=== PATIENT | male | born 1985 | race African-American/Black ===

== ENCOUNTER 2020-06-05 12:37 | Outpatient (CLI) | payer OTHER ==
[2020-06-05 13:34] VITALS: BP 132/96
--- NOTE | 2020-06-05 13:34 | SLEEP CARE CONSULTATION ---
Information from patient questionnaire entered by Hellen Alicea. I have reviewed and concur with the information entered by Hellen Alicea. This document represents the service I personally performed and the decisions made by me, Maryam Anderson ARNP. History of Present Illness Service Date and Time: 06/05/2020 1237 Reason for Visit: New patient Chief Complaint: reports: Unrefreshed sleep, Snoring, Excessive daytime sleepiness, Frequent awakenings at night. denies: Observed pauses in breathing Date of Onset: 1 year Usual bedtime: 11:30 PM Time it takes to fall asleep: 15 mins Snores at night: Yes Observed to quit breathing while asleep: No Sleeps alone due to snoring: No Number of times waking at night: 4-5 times Reasons for waking at night: reports: Snoring, Other (Sweating). denies: Choking, Gasping for air Toss, Turn, or Twitch while sleeping: Yes Recalls having dreams: Yes Usually gets out of bed at: 5:30 AM Feels refreshed in the morning: No Morning headache: No Sleepy or fatigued during the day: Yes Ever fallen asleep while driving: No Takes day naps: Yes (daily on weekdays, lasts about 3 hours) Dreams during day naps: No Prior sleep studies: No Additional HPI information: I had the pleasure of seeing ESTELA MCKENZIE today regarding the possibility of him having a sleep disorder. His current complaints are snoring, he feels he is not getting a "constant night sleep", he is waking up frequently at night , sometimes he is not sleeping at all and he has had some drenching night sweats that he gets occasionally. His tells him he snores loudly but she can still sleep in same room. His 3 year old son has also told him he snores. His has not noted any pauses in breathing while sleeping. He has no past medical history or medications. He has no family members with sleep disorders. 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 Patient is and lives in [place]. Have you smoked in the past 12 months: No Alcohol use: Yes Alcohol amount and frequency: 1/2 bottle of wine 4 days a week Caffeine use: No Family History Family history of sleep disordered breathing: No Allergies and Home Medications Drug allergies reviewed: Yes (NKDA) Home medication list reviewed: Yes (no medications) Review of Systems Weight gain over past 5 years: 40 Weight loss over past 5 years: 0 Cardiovascular: denies: high blood pressure Respiratory: denies: shortness of breath Gastrointestinal: denies: heartburn Neurological: denies: headaches, head trauma Ear/Nose/Throat: reports: wisdom teeth removed (still has one). denies: nasal congestion, sinus problems, dry mouth/throat, injury to nose, tonsillectomy Endocrine: reports: too hot or cold, excessive thirst, increased appetite Musculoskeletal: reports: joint pain (stiffness) Immunologic: denies: allergies to food or environment Physical Exam Blood Pressure: 132/96 Cuff size: wrist Heart Rate: 77 O2 Saturation: 98 Height: 5 ft 8 in Weight: 234 lb Body Mass Index: 35.6 BMI Classification: Obese Neck circumference: 18 (inches) Nostrils: patent to airflow Mouth and throat: narrow oropharynx Hard palate: Torus palatinus Uvula: normal Uvula visualization: 50% Mallampati Class II Tongue: normal in size Tonsils: 2+ Chin and jaw: normal size and position Neck: normal w/o lymphadenopathy or thyromegaly Heart: regular rate and rhythm Lungs: clear bilaterally Impression and Plan 1. Suspected Obstructive Sleep Apnea-Hypopnea Syndrome, as suggested by a history of loud and irregular snoring, frequent awakening during the night, unrefreshed sleep, cognitive impairment, and excessive daytime sleepiness. Narrow oropharynx and obesity are common predisposing factors for obstructive sleep apnea-hypopnea syndrome. I recommend proceeding to polysomnography to confirm the diagnosis and to assess severity. If the patient has significant sleep disordered breathing, a manual CPAP titration study will also be performed to find the optimal treatment pressure. I informed the patient of what the sleep studies involve and after some discussion, obtained agreement to proceed. The pathophysiology of obstructive sleep apnea-hypopnea syndrome was discussed with the patient and health risks of cardiovascular and cerebrovascular disease if not treated. Risks of drowsy driving discussed in detail and patient advised to avoid long distance driving and to toe puller at the first sign of drowsiness. Patient agreed to plan. * Schedule polysomnography +- manual CPAP titration study and return in 1-2 weeks after the study to discuss result and initiate therapy. * Avoid long distance driving or driving when feeling sleepy. * Avoid alcohol, sedative and muscle relaxant around bedtime. * Attempt to lose weight. * Review instructions provided by trained office staff on how to prepare for the sleep study. * Return for follow-up after sleep study completed. Counseling Topics: Weight loss health impact Visit Type: In Office Time Spent with Patient (minutes): 30 Provider Statement: I spent 100% of the Face to Face Visit with the patient with greater than 50% spent counseling the patient and coordination of care.
== END 2020-06-05 12:38 | disposition home or self-care (01) ==
LOC: SC 12:37
PROVIDERS: ATTEND Nurse Practitioner Family
DX: R06.83 Snoring (principal); G47.8 Other sleep disorders; R41.89 Other symptoms and signs involving cognitive functions and awareness; G47.10 Hypersomnia, unspecified; E66.9 Obesity, unspecified; Z68.35 Body mass index [BMI] 35.0-35.9, adult
CPT/HCPCS: 99203; 99212

== ENCOUNTER 2020-06-28 12:52 | Outpatient (CLI) | payer OTHER | END 2020-06-28 12:53 | disposition home or self-care (01) | LOC: SC 12:52 | PROVIDERS: ATTEND Nurse Practitioner Family | DX: R06.83 Snoring (principal); G47.8 Other sleep disorders; G47.10 Hypersomnia, unspecified; E66.9 Obesity, unspecified; Z68.35 Body mass index [BMI] 35.0-35.9, adult | CPT/HCPCS: 95806 ==

== ENCOUNTER 2020-07-03 08:59 | Outpatient (CLI) | payer OTHER ==
--- NOTE | 2020-07-03 09:39 | SLEEP CARE CONSULTATION ---
Information from patient questionnaire entered by Lea Sotelo. I have reviewed and concur with the information entered by Lea Sotelo. This document represents the service I personally performed and the decisions made by , Maryam Anderson ARNP. History of Present Illness Service Date and Time: 07/03/2020 0859 Initial [place] Sleepiness Scale score: 15 (in 2020) Current [place] Sleepiness Scale score: 17 Additional HPI information: ESTELA MCKENZIE returns for follow up and results of the recently performed home sleep study. The patient was informed of the following findings: no significant sleep disordered breathing with an average AHI of 4.4 and farhana oxygen saturation of 87%. I explained the pathophysiology behind obstructive sleep apnea. Patient does not have sleep apnea and was advised how weight gain could increase the risk of developing sleep apnea in the future. I strongly encouraged the patient to lose weight. Patient does not have significant sleep disordered breathing but has elevated AHI in supine position so advised positional therapy. Methods to achieve positional management therapy were discussed; such as, positioning with pillows, wearing a T-shirt with tennis balls sewn into the back, Rematee shirt, Zzomba belt and Slumberbump belt. Pamphlets provided on how to obtain the commercially available products. Patient has mild snoring. Snoring can be reduced by weight loss. Weight loss is best achieved with diet consult. Patient instructed to contact PCP for referral. Snoring can also be treated with an oral appliance from a dentist. Advised to check insurance coverage. In addition, an ENT evaluation can be do to see if other treatment is indicated. Patient counseled not drink alcohol less than 4 hours before bedtime as it can increase snoring and apnea. Patient was cautioned about risks of drowsy driving until sleepiness symptoms resolve. Sleep Study - Results Type of Sleep Study: Home sleep study Prior sleep studies: No Polysomnography/Home Sleep Study results: Physician Impression: The quality of the study is good. The length of the study is adequate (> 240 minutes). Please also see the tabulated and graphic data. 1. No significant sleep-disordered breathing, with an AHI of 4.4/hr and farhana SaO2 of 87%. During the study, the patient had 10 apneas (10 obstructive, 0 central, 0 mixed) and 22 hypopneas. The longest episode lasted 57.0 seconds. The few respiratory events occurred almost exclusively during supine sleep (supine AHI was 7.0 and non-supine, 2.84). 2. Hypoxemia (ICD-10 R09.02), minimal, with the lowest oxygen saturation of 87 % and 0.3 minutes with SaO2 under 90%. Baseline oxygen saturation was normal (Average oxygen saturation was 95%). Allergies and Home Medications Home medication list reviewed: Yes (no changes) Review of Systems Review of systems same as previous: Yes (no changes) Physical Exam Heart Rate: 71 O2 Saturation: 98 Height: 5 ft 8 in Weight: 230 lb Body Mass Index: 34.9 BMI Classification: Obese Impression and Plan Snoring but no significant sleep disordered breathing. Patient advised that often weight loss will reduce snoring as well as apnea risk. An oral appliance can also be used for snoring. This would require a dental consultation. Patient cautioned not to use other online appliances as can cause bite issues. A list of accredited dentists in [facility] and one local dentist who makes oral appliances is available in this office. Patient is advised to check if insurance will cover. An ENT consult can also be helpful to determine if any other treatment is an option. * Attempt to lose weight * Avoid alcohol consumption near bedtime * The patient is cautioned about driving until sleepiness is completely resolved. * Return as needed. Counseling Topics: Weight loss health impact Visit Type: In Office Time Spent with Patient (minutes): 15 Provider Statement: I spent 100% of the Face to Face Visit with the patient with greater than 50% spent counseling the patient and coordination of care.
== END 2020-07-03 09:00 | disposition home or self-care (01) ==
LOC: SC 08:59
PROVIDERS: ATTEND Nurse Practitioner Family
DX: R06.83 Snoring (principal); E66.9 Obesity, unspecified; Z68.34 Body mass index [BMI] 34.0-34.9, adult
CPT/HCPCS: 99212

== ENCOUNTER 2021-03-28 13:19 | Outpatient (CLI) | payer OTHER ==
[2021-03-28 13:51] VITALS: BP 142/103
--- NOTE | 2021-03-28 13:51 | SLEEP CARE CONSULTATION ---
Information from patient questionnaire entered by Gonzalo Shields MA. I have reviewed and concur with the information entered by Gonzalo Shields MA. This document represents the service I personally performed and the decisions made by , Maryam Anderson ARNP. History of Present Illness Service Date and Time: 03/28/2021 1319 Reason for follow up: other (9 MONTH F/U) Prior sleep studies: No Type of Sleep Study: Home sleep study HPI additional information: ESTELA MCKENZIE was last seen following a sleep study showing AHI 4.4 with a supine AHI of 7.0. He returns today for a seven month follow-up. He states he is still having issues with sleeping. He snores loudly, wakes up feeling like he is choking/suffocating and he does not feel rested in the mornings. He has excessive daytime sleepiness and will fall asleep if he sits quietly, he has to stay moving to stay awake. Sleep Study - Results Type of Sleep Study: Home sleep study Prior sleep studies: No Subjective Initial [place] Sleepiness Scale score: 15 (in 2020) Current [place] Sleepiness Scale score: 17 (2020) Allergies and Home Medications Home medication list reviewed: Yes Allergy and home medication list: Sumatriptan Synthroid Blood pressure medication, not sure of name Physical Exam Vital signs obtained and entered by: SRI BORJAS Blood Pressure: 142/103 (RIGHT ) Cuff size: wrist Heart Rate: 100 (TAKING BP MEDS) O2 Saturation: 96 (WITH PAPER MASK) Height: 5 ft 8 in Weight: 221 lb (BOOTS AND UNIFORM) Body Mass Index: 33.5 BMI Classification: Obese Impression and Plan 1. Suspected Obstructive Sleep Apnea-Hypopnea Syndrome, as suggested by a history of loud and irregular snoring, observed cessation of breath while asleep, gasping or choking in sleep, morning headache, frequent awakening during the night, unrefreshed sleep, cognitive impairment, and excessive daytime sleepiness. Patient's last HST showed an elevated AHI when he was supine. He states he normally sleeps supine but did not as much that night because his child was sleeping behind his back. He has been diagnosed with hypothyroidism and is being treated. He has not really gained any weight. I recommend proceeding to polysomnography to confirm the diagnosis and to assess severity. I obtained agreement to proceed. The pathophysiology of obstructive sleep apnea- hypopnea syndrome was discussed with the patient and health risks of cardiovascular and cerebrovascular disease if not treated. Risks of drowsy driving discussed in detail and patient advised to avoid long distance driving and to anchor tack puller at the first sign of drowsiness. Patient agreed to plan. * Schedule polysomnography +- manual CPAP titration study and return in 1-2 weeks after the study to discuss result and initiate therapy. * Avoid long distance driving or driving when feeling sleepy. * Avoid alcohol, sedative and muscle relaxant around bedtime. * Attempt to lose weight. * Review instructions provided by trained office staff on how to prepare for the sleep study. * Return for follow-up after sleep study completed. Counseling Topics: Weight loss health impact Visit Type: In Office Time Spent with Patient (minutes): 21 Provider Statement: I spent 100% of the Face to Face Visit with the patient with greater than 50% spent counseling the patient and coordination of care.
== END 2021-03-28 13:20 | disposition home or self-care (01) ==
LOC: SC 13:19
PROVIDERS: ATTEND Nurse Practitioner Family
DX: R06.83 Snoring (principal); R06.81 Apnea, not elsewhere classified; R51.9 Headache, unspecified; G47.8 Other sleep disorders; R41.9 Unspecified symptoms and signs involving cognitive functions and awareness; G47.10 Hypersomnia, unspecified; E66.9 Obesity, unspecified; Z68.33 Body mass index [BMI] 33.0-33.9, adult
CPT/HCPCS: 99212; 99213

== ENCOUNTER 2021-04-09 12:24 | Outpatient (CLI) | payer OTHER | END 2021-04-09 12:25 | disposition home or self-care (01) | LOC: SC 12:24 | PROVIDERS: ATTEND Nurse Practitioner Family | DX: G47.33 Obstructive sleep apnea (adult) (pediatric) (principal); R09.02 Hypoxemia | CPT/HCPCS: 95806 ==

== ENCOUNTER 2021-04-11 11:06 | Outpatient (CLI) | payer OTHER ==
[2021-04-11 11:47] VITALS: BP 139/78
--- NOTE | 2021-04-11 11:47 | SLEEP CARE CONSULTATION ---
Information from patient questionnaire entered by Gonzalo Shields MA. I have reviewed and concur with the information entered by Gonzalo Shields MA. This document represents the service I personally performed and the decisions made by , Maryam Anderson ARNP. History of Present Illness Service Date and Time: 04/11/2021 1106 Initial [place] Sleepiness Scale score: 15 (in 2020) Current [place] Sleepiness Scale score: 17 (IN 2021) Additional HPI information: ESTELA MCKENZIE returns for follow up and results of the recently performed home sleep study. I explained the pathophysiology behind obstructive sleep apnea. We then spent qu ite a bit of time discussing different treatment options. For mild obstructive sleep apnea, surgery and oral appliance are alternatives to nasal CPAP therapy but in moderate or severe cases, nasal CPAP is the most effective and reliable treatment. I reviewed the impact of weight changes on sleep apnea and strongly recommended losing weight. After some discussion, the patient opted to go with the nasal CPAP therapy. Nasal autoCPAP set at 4-15 cmH20 will be ordered with rationale explained. A manual titration study will be ordered if unable to find optimal pressure with office adjustments. I explained how CPAP machine works and what to expect when using the machine. Using CPAP every night in order to get used to it was emphasized. Patient advised to put CPAP mask on before getting into bed so as not to fall asleep without CPAP. To assist acclimation to CPAP use, it could also be used for a short time during day while reading or watching TV. The patient was instructed to call the CPAP supplier to discuss any mechanical problem that may occur. If the mask given is uncomfortable or is difficult to keep on through the night even with adjustment, contact the CPAP supplier as many will replace with another mask style if notified before 30 days. If snoring or perceives is not getting enough air or too much air from the machine, notify this office. [facility] patient education PAP tips reviewed and given to patient. Patient counseled not drink alcohol less than 4 hours before bedtime as it can increase snoring and apnea. Patient was cautioned about risks of drowsy driving until sleepiness symptoms resolve. Sleep Study - Results Type of Sleep Study: Home sleep study Prior sleep studies: No Polysomnography/Home Sleep Study results: Physician Impression: The quality of the study is good. The length of the study is adequate (> 240 minutes). Please also see the tabulated and graphic data. 1. Obstructive Sleep Apnea-Hypopnea (ICD-10 G47.33), mild, with an AHI of 5.6/hr and farhana SaO2 of 88%. During the study, the patient had 3 apneas (3 obstructive, 0 central, 0 mixed) and 27 hypopneas. The longest episode lasted 69.0 seconds. The patient slept almost exclusively in supine position (supine AHI was 4.8 and non-supine, 19.35). 2. Hypoxemia (ICD-10 R09.02), minimal, with the lowest oxygen saturation of 88 % and 0.4 minutes with SaO2 under 90%. Baseline oxygen saturation was normal (Average oxygen saturation was 95%). Allergies and Home Medications Home medication list reviewed: Yes Allergy and home medication list: Telmisartin, for blood pressure Terbinafine Review of Systems Review of systems same as previous: Yes (no changes) Physical Exam Blood Pressure: 139/78 (RIGHT) Cuff size: wrist Heart Rate: 99 O2 Saturation: 98 (WITH PAPER MASK) Height: 5 ft 8 in Weight: 219 lb (WITH CLOTHES) Body Mass Index: 33.3 BMI Classification: Obese Impression and Plan 1. Obstructive Sleep Apnea-Hypopnea Syndrome, mild, with lowest oxygen saturation of 88%. Obviously this is the cause of the patients symptoms of unrefreshed sleep, and excessive daytime sleepiness. Positive pressure therapy could benefit his overall health and reduce cardiovascular and cerebrovascular adverse events. As mentioned above, the patient will be started on nasal autoCP AP therapy with pressure set at 4-15 cmH2O. Compliance guidelines also reviewed. A copy of compliance guidelines will be given for reference at check out. * Nasal auto CPAP therapy, pressure at 4-15 cm H2O. * Attempt to lose weight. * Avoid alcohol consumption near bedtime. * Avoid supine sleep until using CPAP. * The patient is again cautioned about driving until sleepiness completely resolves. * Return one month after CPAP obtained. I will assess response to therapy and compliance at that time. Counseling Topics: Weight loss health impact Visit Type: In Office Time Spent with Patient (minutes): 20 Provider Statement: I spent 100% of the Face to Face Visit with the patient with greater than 50% spent counseling the patient and coordination of care.
== END 2021-04-11 11:07 | disposition home or self-care (01) ==
LOC: SC 11:06
PROVIDERS: ATTEND Nurse Practitioner Family
DX: G47.33 Obstructive sleep apnea (adult) (pediatric) (principal); E66.9 Obesity, unspecified; Z68.33 Body mass index [BMI] 33.0-33.9, adult
CPT/HCPCS: 99212; 99213